=== PATIENT | female | born 1975 | race Caucasian/White ===

== ENCOUNTER 2023-01-31 22:57 | Emergency (ER) | payer OTHER ==
[2023-01-31] MEDS ORDERED: Midazolam HCl 2 mg/2 ml Vial ONE (23:33)
[2023-01-31] MEDS ORDERED: Ondansetron PF 4 MG/2 ML Vial ONE (23:33)
[2023-01-31] MEDS ORDERED: Morphine 4 MG/ML VIAL ONE (23:57)
== END 2023-01-31 23:59 | disposition home or self-care (01) ==
LOC: CSHERS 22:57
DX: S43.084A Other dislocation of right shoulder joint, initial encounter (principal); E03.9 Hypothyroidism, unspecified; W18.30XA Fall on same level, unspecified, initial encounter; Z79.899 Other long term (current) drug therapy
CPT/HCPCS: 23650; 96374; 96375; J2250; J2270; J2405